=== PATIENT | female | born 1995 | race Caucasian/White ===

== ENCOUNTER 2016-11-26 15:29 | Emergency (ER) | payer OTHER ==
[~2016-11-26] VITALS: Ht 165.1 cm; Wt 70.3 kg
[2016-11-26 15:43] VITALS: BP 133/63
== END 2016-11-26 16:20 | disposition home or self-care (01) ==
LOC: ED 15:29
DX: L30.9 Dermatitis, unspecified (principal)

== ENCOUNTER 2017-05-14 09:40 | Emergency (ER) | payer OTHER ==
[~2017-05-14] VITALS: Ht 170.2 cm; Wt 71.7 kg
[2017-05-14 09:51] VITALS: Ht 170.2 cm; Wt 71.7 kg
[2017-05-14 10:49] LABS: BASOPHIL % 0.4 % (0-2); PLATELET COUNT 316 x10^3mcL (130-400); RED CELL DISTRIBUTION WIDTH 13.4 % (11.5-14.5)
[2017-05-14 10:58] LABS: CALCIUM 8.9 mg/dL (8.5-10.1); CARBON DIOXIDE 23.4 mmol/L (21-32); CHLORIDE SERUM 104 mmol/L (98-107); CREATININE SERUM 0.6 mg/dL (0.6-1.0); GFR1 > 60 mL/min; GLUCOSE SERUM 86 mg/dL (74-106); SODIUM SERUM 139 mmol/L (136-145)
[2017-05-14 11:02] LABS: ALBUMIN 3.8 g/dL (3.4-5.0); ALKALINE PHOSPHATASE 41 U/L (46-116); ALT/SGPT 63 U/L (14-59); AMYLASE 42 U/L (25-115); AST/SGOT 23 U/L (15-37); BILIRUBIN TOTAL 0.29 mg/dL (0.20-1.00); LIPASE 103 IU/L (73-393); TOTAL PROTEIN, SERUM 7.7 g/dL (6.4-8.2)
[2017-05-14 13:15] VITALS: BP 115/65
== END 2017-05-14 13:15 | disposition home or self-care (01) ==
LOC: ED 09:40
PROVIDERS: Specialist
DX: R10.9 Unspecified abdominal pain (principal); R11.0 Nausea
CPT/HCPCS: 36415; 83880; J1885

== ENCOUNTER 2017-08-25 09:46 | Emergency (ER) | payer OTHER ==
[~2017-08-25] VITALS: Ht 165.1 cm; Wt 70.8 kg
[2017-08-25 09:55] VITALS: Ht 165.1 cm; Wt 70.8 kg
[2017-08-25 10:57] VITALS: BP 110/70
== END 2017-08-25 10:57 | disposition home or self-care (01) ==
LOC: ED 09:46
DX: H10.89 Other conjunctivitis (principal)

== ENCOUNTER 2018-02-19 18:09 | Emergency (ER) | payer OTHER ==
[~2018-02-19] VITALS: Ht 165.1 cm; Wt 73.2 kg
[2018-02-19 18:59] VITALS: Ht 165.1 cm; Wt 73.2 kg
[2018-02-19 21:13] LABS: BASOPHIL % 0.3 % (0-2); PLATELET COUNT 321 x10^3mcL (130-400)
[2018-02-19 21:22] LABS: CALCIUM 8.8 mg/dL (8.5-10.1); CHLORIDE SERUM 102 mmol/L (98-107); CREATININE SERUM 0.7 mg/dL (0.6-1.0); GFR1 > 60 mL/min; GLUCOSE SERUM 81 mg/dL (74-106); POTASSIUM SERUM 3.7 mmol/L (3.5-5.1); SODIUM SERUM 138 mmol/L (136-145)
[2018-02-19 21:27] LABS: ALKALINE PHOSPHATASE 47 U/L (46-116); ALT/SGPT 65 U/L (14-59); AST/SGOT 28 U/L (15-37); BILIRUBIN TOTAL 0.4 mg/dL (0.20-1.00); LIPASE 185 IU/L (73-393); TOTAL PROTEIN, SERUM 8.1 g/dL (6.4-8.2)
[2018-02-19 22:19] VITALS: BP 115/67
== END 2018-02-19 22:20 | disposition home or self-care (01) ==
LOC: ED 18:09
PROVIDERS: Emergency Medicine
DX: K62.5 Hemorrhage of anus and rectum (principal)
CPT/HCPCS: J7030

== ENCOUNTER 2018-05-16 22:59 | Emergency (ER) | payer OTHER ==
[~2018-05-16] VITALS: Ht 165.1 cm; Wt 60.8 kg
[2018-05-16 23:20] VITALS: BP 136/99; Ht 165.1 cm; Wt 60.8 kg
== END 2018-05-17 03:21 | disposition home or self-care (01) ==
LOC: ED 22:59
DX: N76.0 Acute vaginitis (principal); Z87.442 Personal history of urinary calculi
CPT/HCPCS: 87491; 87591

== ENCOUNTER 2018-07-22 04:35 | Emergency (ER) | payer OTHER ==
[~2018-07-22] VITALS: Ht 160 cm; Wt 63.5 kg
[2018-07-22 04:39] VITALS: BP 119/69; Ht 160 cm; Wt 63.5 kg
== END 2018-07-22 05:28 | disposition home or self-care (01) ==
LOC: ED 04:35
DX: S05.02XA Injury of conjunctiva and corneal abrasion without foreign body, left eye, initial encounter (principal); Z87.442 Personal history of urinary calculi; W22.8XXA Striking against or struck by other objects, initial encounter; Y93.89 Activity, other specified; Y92.89 Other specified places as the place of occurrence of the external cause; Y99.8 Other external cause status

== ENCOUNTER 2019-04-03 13:00 | Emergency (ER) | payer SELFPAY ==
[~2019-04-03] VITALS: Ht 162.6 cm; Wt 76.7 kg
[2019-04-03 13:27] VITALS: Ht 162.6 cm; Wt 76.7 kg
[2019-04-03 19:36] VITALS: BP 120/75
== END 2019-04-03 19:36 | disposition home or self-care (01) ==
LOC: ED 13:00
DX: R10.2 Pelvic and perineal pain (principal); Z87.442 Personal history of urinary calculi
CPT/HCPCS: 87491; 87591; J0696